=== PATIENT | female | born 1960 | race Caucasian/White ===

== ENCOUNTER 2017-06-12 18:31 | Emergency (ER) | payer OTHER ==
[~2017-06-12] VITALS: Ht 147.3 cm; Wt 75.5 kg
[2017-06-12 20:08] LABS: EOSINOPHIL (%) 2.1 % (0-5); EOSINOPHIL COUNT 0.2 K/uL (0-0.3); HEMATOCRIT 38.6 % (36.0-46.0); IMMATURE GRANULOCYTE (%) 1.9 % (0.0-0.7); IMMATURE GRANULOCYTE COUNT 0.2 K/uL; INSTRUMENT ABS NEUTROPHIL CT 5.7 K/uL; LYMPHOCYTE COUNT 3.2 K/uL (1.0-2.8); MCH 29.1 PG (29.0-34.0); MCHC 33.4 G/DL (30.0-36.0); MCV 86.9 FL (83-99); MEAN PLAT.VOLUME 9.4 uM^3 (9.5-12.4); MONOCYTE (%) 5.3 % (3-12); MONOCYTE COUNT 0.5 K/uL (0-0.8); NEUTROPHIL (%) 58.2 % (45-76); NEUTROPHIL COUNT 5.7 K/uL (1.8-6.4); PLATELET COUNT 304 K/uL (156-360); RBC DIS.WIDTH-CV 12.8 % (11.8-14.6); RBC DIS.WIDTH-SD 40.2 % (39-53); RED BLOOD COUNT 4.44 M/uL (3.80-5.20); WHITE BLOOD COUNT 9.8 K/uL (4.1-10.2)
[2017-06-12 20:17] LABS: CHLORIDE 104 mEq/L (99-109); POTASSIUM 3.9 mEq/L (3.7-5.4); SODIUM 136 mEq/L (136-147)
[2017-06-12 20:18] LABS: GLUCOSE 239 mg/dL (70-99)
[2017-06-12 20:20] LABS: ANION GAP 8 MEQ/L (2-14)
[2017-06-12 20:22] LABS: GFR ESTIMATE (CALCULATED) > 59 mL/min/
[2017-06-12 20:23] LABS: UREA NITROGEN (BUN) 13 mg/dL (9-23)
[2017-06-12 20:34] LABS: INTER. NORMALIZED RATIO 0.9; PROTHROMBIN TIME 10.6 SEC (10.2-12.9)
[2017-06-12 20:37] LABS: PTT 23.7 SEC (25-37)
[2017-06-12] MEDS ORDERED: BACTRIM,SEPT1 TABLET PO (21:33)
[2017-06-12] MEDS ORDERED: PERCOCET 5/31 TABLET PO (21:33)
[2017-06-12 22:28] VITALS: BP 147/94
[2017-06-13] MEDS ORDERED: GLUCOPHAGE1000 MG PO (09:17)
[2017-06-14] MEDS ORDERED: SIMVASTATIN20 MG PO (19:19)
[2017-06-14] MEDS ORDERED: GLYBURIDE5 MG PO (19:20)
== END 2017-06-12 22:29 | disposition home or self-care (01) ==
LOC: EME 18:31
PROVIDERS: Physician Assistant
DX: L03.116 Cellulitis of left lower limb (principal); S80.812D Abrasion, left lower leg, subsequent encounter; X58.XXXD Exposure to other specified factors, subsequent encounter; Z87.891 Personal history of nicotine dependence
CPT/HCPCS: 73590; 80048; 83605; 85025; 85610; 85730; 87040; 93971; 99281; 99285; J0696; J7030

== ENCOUNTER 2017-06-18 20:40 | Inpatient (IN) | payer OTHER ==
[~2017-06-18] VITALS: Ht 147.3 cm; Wt 76.3 kg
[~2017-06-18 20:40] MED LIST: BACTRIM,SEPT1 TABLET PO; GLUCOPHAGE1000 MG PO; GLYBURIDE5 MG PO; PERCOCET 5/31 TABLET PO; SIMVASTATIN20 MG PO
[2017-06-18 21:57] LABS: HEMATOCRIT 35.8 % (36.0-46.0); MCH 29.1 PG (29.0-34.0); MCHC 33.8 G/DL (30.0-36.0); MCV 86.1 FL (83-99); MEAN PLAT.VOLUME 9.9 uM^3 (9.5-12.4); PLATELET COUNT 322 K/uL (156-360); RBC DIS.WIDTH-CV 12.9 % (11.8-14.6); RBC DIS.WIDTH-SD 39.8 % (39-53); RED BLOOD COUNT 4.16 M/uL (3.80-5.20); WHITE BLOOD COUNT 5.9 K/uL (4.1-10.2)
[2017-06-18 22:08] LABS: CHLORIDE 102 mEq/L (99-109); POTASSIUM 3.9 mEq/L (3.7-5.4); SODIUM 135 mEq/L (136-147)
[2017-06-18 22:09] LABS: GLUCOSE 128 mg/dL (70-99)
[2017-06-18 22:11] LABS: ANION GAP 11 MEQ/L (2-14)
[2017-06-18 22:13] LABS: GFR ESTIMATE (CALCULATED) > 59 mL/min/
[2017-06-18 22:14] LABS: UREA NITROGEN (BUN) 8 mg/dL (9-23)
[2017-06-18] MEDS ORDERED: BACTRIM,SEPT1 TABLET PO (22:39)
[2017-06-19 00:18] VITALS: BP 138/64
[2017-06-19 07:53] LABS: POINT-OF-CARE METER ID UU14162513
[2017-06-19 08:32] VITALS: BP 135/70
[2017-06-19 11:24] VITALS: BP 136/60
[2017-06-19 15:20] VITALS: BP 116/72
[2017-06-19 19:23] VITALS: BP 137/72
[2017-06-19 23:17] VITALS: BP 118/67
[2017-06-20 09:30] VITALS: BP 119/80
[2017-06-20 09:53] LABS: POINT-OF-CARE METER ID UU13113831
[2017-06-20] MEDS ORDERED: VANCOMYCIN1 GM/150 M IV (11:06)
[2017-06-20 12:01] VITALS: BP 125/73
[2017-06-20 12:13] LABS: POINT-OF-CARE METER ID UU14162513
== END 2017-06-20 12:15 | disposition home or self-care (01) | DRG 603 ==
LOC: EME 20:40 → EDOF 22:57 → ENRESERV 23:00 → 5WEST 06-19 00:08 → CANRESERV 06-19 11:11 → ENRESERV 06-19 11:11 → 5WEST 06-20 12:15
PROVIDERS: Hospitalist; Physician Assistant
DX: L03.116 Cellulitis of left lower limb (principal); B95.62 Methicillin resistant Staphylococcus aureus infection as the cause of diseases classified elsewhere; E11.69 Type 2 diabetes mellitus with other specified complication; E78.5 Hyperlipidemia, unspecified; L30.9 Dermatitis, unspecified; Z79.84 Long term (current) use of oral hypoglycemic drugs
CPT/HCPCS: 80048; 82948; 85027; 87040; 99281; 99285; G0378; J0692; J1650; J2543; J3370; J7030; J7060

== ENCOUNTER 2017-08-06 18:20 | Emergency (ER) | payer OTHER ==
[~2017-08-06] VITALS: Ht 147.3 cm; Wt 74.4 kg
[~2017-08-06 18:20] MED LIST changes: +VANCOMYCIN1 GM/150 M IV
[2017-08-06 18:55] LABS: BASOPHIL (%) 0.3 % (0-1); EOSINOPHIL (%) 0.4 % (0-5); HEMATOCRIT 38.3 % (36.0-46.0); IMMATURE GRANULOCYTE (%) 0.1 % (0.0-0.7); LYMPHOCYTE COUNT 1.4 K/uL (1.0-2.8); MCH 29.1 PG (29.0-34.0); MCHC 33.9 G/DL (30.0-36.0); MCV 85.9 FL (83-99); MONOCYTE (%) 6.9 % (3-12); MONOCYTE COUNT 0.5 K/uL (0-0.8); NEUTROPHIL (%) 74.3 % (45-76); NEUTROPHIL COUNT 5.6 K/uL (1.8-6.4); PLATELET COUNT 229 K/uL (156-360); RBC DIS.WIDTH-CV 12.6 % (11.8-14.6); RBC DIS.WIDTH-SD 39.8 % (39-53); RED BLOOD COUNT 4.46 M/uL (3.80-5.20); WHITE BLOOD COUNT 7.5 K/uL (4.1-10.2)
[2017-08-06 19:05] LABS: CHLORIDE 100 mEq/L (99-109); POTASSIUM 3.9 mEq/L (3.7-5.4); SODIUM 135 mEq/L (136-147)
[2017-08-06 19:07] LABS: GLUCOSE 199 mg/dL (70-99)
[2017-08-06 19:11] LABS: CREATININE 0.8 mg/dL (0.6-1.3); GFR ESTIMATE (CALCULATED) > 59 mL/min/
[2017-08-06 19:12] LABS: UREA NITROGEN (BUN) 15 mg/dL (9-23)
[2017-08-06] MEDS ORDERED: BACTRIM,SEPT1 TABLET PO (21:28)
[2017-08-06] MEDS ORDERED: KEFLEX500 MG PO (21:28)
[2017-08-06 22:53] VITALS: BP 152/98
== END 2017-08-06 22:56 | disposition home or self-care (01) ==
LOC: EME 18:20
DX: L03.116 Cellulitis of left lower limb (principal); R09.89 Other specified symptoms and signs involving the circulatory and respiratory systems; E78.5 Hyperlipidemia, unspecified; E11.9 Type 2 diabetes mellitus without complications; Z79.84 Long term (current) use of oral hypoglycemic drugs
CPT/HCPCS: 71046; 80048; 81003; 83605; 85025; 87040; 99281; 99285; J1885; J3370